=== PATIENT | male | born 2000 | race African-American/Black ===

== ENCOUNTER 2020-09-27 20:21 | Emergency (ER) | payer SELFPAY ==
[2020-09-27] MEDS ORDERED: IBUPROFEN 400 MG TAB ONE (21:11)
[2020-09-27] MEDS ORDERED: IBUPROFEN 200 MG TAB PO ONE (21:11)
--- NOTE | 2020-09-27 21:42 | EDPHYS ---
Physician Documentation [facility] Name: Phillip Cade Age: 20 yrs Sex: Male : 2000 Arrival Date: 09/27/2020 Time: 20:24 Bed 16 Private MD: ED Physician Gilmar Cage HPI: 09/27 21:37 This 20 yrs old Black Male presents to ER via Ambulatory with complaints of Weakness, kb Headache, Doesn't Feel Right. 21:37 The patient has not experienced similar symptoms in the past. The patient has not kb recently seen a physician. 21:37 The patient or guardian reports cough, that is intermittent, described as mild, with no kb sputum, flu symptoms, low-grade fever, myalgias. Onset: The symptoms/episode began/occurred yesterday. Severity of symptoms: At their worst the symptoms were moderate, in the emergency department the symptoms are unchanged. Modifying factors: The symptoms are alleviated by nothing, the symptoms are aggravated by nothing. Associated signs and symptoms: Pertinent positives: fever, Pertinent negatives: chest pain, diarrhea, ear ache, nausea, rhinorrhea, sore throat, vomiting. Historical: - Allergies: 20:54 Onion; em - PMHx: 20:54 Asthma; em - PSHx: 20:54 None; em - Immunization history:: Flu vaccine is not up to date. - Social history:: Smoking status: Reported history of juuling and/or vaping. ROS: 21:36 Cardiovascular: Negative for chest pain, palpitations, and edema, Abdomen/GI: Negative kb for abdominal pain, nausea, vomiting, diarrhea, and constipation, MS/Extremity: Negative for injury and deformity, Skin: Negative for injury, rash, and discoloration, Neuro: Negative for headache, weakness, numbness, tingling, and seizure. 21:36 Constitutional: Positive for body aches, chills, fatigue, fever, malaise. 21:36 Respiratory: Positive for cough, Negative for dyspnea on exertion, hemoptysis, orthopnea, pleurisy, shortness of breath, sputum production, wheezing. Exam: 21:36 Constitutional: This is a well developed, well nourished patient who is awake, alert, kb and in no acute distress. Head/Face: Normocephalic, atraumatic. Chest/axilla: Normal chest wall appearance and motion. Nontender with no deformity. No lesions are appreciated. Cardiovascular: Regular rate and rhythm with a normal S1 and S2. No gallops, murmurs, or rubs. Normal PMI, no JVD. No pulse deficits. Respiratory: Lungs have equal breath sounds bilaterally, clear to auscultation and percussion. No rales, rhonchi or wheezes noted. No increased work of breathing, no retractions or nasal flaring. Abdomen/GI: Soft, non-tender, with normal bowel sounds. No distension or tympany. No guarding or rebound. No evidence of tenderness throughout. Skin: Warm, dry with normal turgor. Normal color with no rashes, no lesions, and no evidence of cellulitis. MS/ Extremity: Pulses equal, no cyanosis. Neurovascular intact. Full, normal range of motion. Neuro: Awake and alert, GCS 15, oriented to person, place, time, and situation. Cranial nerves II-XII grossly intact. Motor strength 5/5 in all extremities. Sensory grossly intact. Cerebellar exam normal. Normal gait. 21:36 ENT: Posterior pharynx: Airway: normal, no evidence of obstruction, Tonsils: bilaterally enlarged, with erythema, Uvula: normal, midline, swelling, that is mild, erythema, that is moderate. Vital Signs: 20:50 BP 135 / 71; Pulse 109; Resp 20; Temp 101.5; Pulse Ox 99% on R/A; Weight 81.65 kg; em Height 6 ft. 0 in. (182.88 cm); Pain 8/10; 21:49 BP 120 / 79; Pulse 99; Resp 18; Temp 99.8; Pulse Ox 100% ; rr5 20:50 Body Mass Index 24.41 (81.65 kg, 182.88 cm) em MDM: 20:42 Patient medically screened. kb 21:36 Data reviewed: vital signs, nurses notes. Data interpreted: Pulse oximetry: on room air kb is 99 %. Interpretation: normal. 21:38 Counseling: I had a detailed discussion with the patient and/or guardian regarding: the kb historical points, exam findings, and any diagnostic results supporting the discharge/admit diagnosis, lab results, the need for outpatient follow up, a family practitioner, to return to the emergency department if symptoms worsen or persist or if there are any questions or concerns that arise at home. 09/27 20:49 Order name: Flu 09/27 20:49 Order name: Strep 09/27 20:49 Order name: [place] Screen Profile 09/27 20:50 Order name: Influenza Screen (A ; Complete Time: 21:38 [facility] 09/27 20:50 Order name: Group A Streptococcus Rapid Sc; Complete Time: 21:35 [facility] 09/27 20:50 Order name: [place] Screen; Complete Time: 21:35 [facility] 09/27 21:34 Order name: Throat Culture EDDC Administered Medications: 21:00 Drug: Ibuprofen 600 mg Route: PO; em 21:51 Follow up: Response: No adverse reaction; Temperature is decreased rr5 Disposition: 09/28 04:00 Co-signature as Attending Physician, Gilmar Cage MD. 7 Disposition: 09/27/20 21:42 Discharged to Home. Impression: Acute upper respiratory infection, unspecified. - Condition is Stable. - Discharge Instructions: Viral Respiratory Infection, Flvl-Dn-Yaur, COVID-19. - Medication Reconciliation Form, Thank You Letter, Antibiotic Education, Prescription Opioid Use form. - Follow up: Emergency Department; When: As needed; Reason: Worsening of condition. Follow up: Private Physician; When: 2 - 3 days; Reason: Recheck today's complaints, Continuance of care, Re-evaluation by your physician. Signatures: Dispatcher [employer] [facility] Josey Barone, EDITING CLERK-C EDITING CLERK-Jeb Ricci RN RN Triston Alberto RN RN rr5 Gilmar Cage MD MD 7 Corrections: (The following items were deleted from the chart) 09/27 21:48 21:39 CORONAVIRUS+MR.LAB.BRZ ordered. [facility] 21:51 21:42 09/27/2020 21:42 Discharged to Home. Impression: Acute upper respiratory rr5 infection, unspecified. Condition is Stable. Discharge Instructions: Viral Respiratory Infection, [id number], COVID-19. Forms are Medication Reconciliation Form, Thank You Letter, Antibiotic Education, Prescription Opioid Use. Follow up: Emergency Department; When: As needed; Reason: Worsening of condition. Follow up: Private Physician; When: 2 - 3 days; Reason: Recheck today's complaints, Continuance of care, Re-evaluation by your physician. kb
--- NOTE | 2020-09-27 21:42 | ER ---
Nurse's Notes [facility] Name: Phillip Cade Age: 20 yrs Sex: Male : 2000 Arrival Date: 09/27/2020 Time: 20:24 Bed 16 Private MD: Diagnosis: Acute upper respiratory infection, unspecified Presentation: 09/27 20:50 Chief complaint: Patient states: chills, body aches, mild cough, and feeling weak since em yesterday, denies N/V or fever, pt reports getting the 2 series covid vaccine about 2-3 months ago because he is in the and was one of the first to get it. Coronavirus screen: chills, cough unrelated to allergies, muscle pain, Client presents with at least one sign or symptom that may indicate coronavirus-19. Standard/surgical mask placed on the client. Provider contacted for isolation considerations. Ebola Screen: Patient negative for fever greater than or equal to 101.5 degrees Fahrenheit, and additional compatible Ebola Virus Disease symptoms Patient denies exposure to infectious person. Patient denies travel to an Ebola-affected area in the 21 days before illness onset. No symptoms or risks identified at this time. Initial Sepsis Screen: Does the patient meet any 2 criteria? Temp <36.0*C (96.8*F)) or > 38.3*C (100.9*F). HR > 90 bpm. No. Patient's initial sepsis screen is negative. Does the patient have a suspected source of infection? Yes: Productive cough/pneumonia. Risk Assessment: Do you want to hurt yourself or someone else? Patient reports no desire to harm self or others. Onset of symptoms was September 26, 2020. 20:50 Method Of Arrival: Ambulatory em 20:50 Acuity: KEIRY 3 em Historical: - Allergies: 20:54 Onion; em - PMHx: 20:54 Asthma; em - PSHx: 20:54 None; em - Immunization history:: Flu vaccine is not up to date. - Social history:: Smoking status: Reported history of juuling and/or vaping. Screenin:11 Abuse screen: Denies threats or abuse. Denies injuries from another. Nutritional rr5 screening: No deficits noted. Tuberculosis screening: No symptoms or risk factors identified. Fall Risk None identified. Total Rea Fall Scale indicates No Risk (0-24 pts). Assessment: 21:10 General: Appears in no apparent distress. comfortable, Behavior is calm, cooperative, rr5 appropriate for age, Reports chills for feeling ill for. Pain: Complains of pain in body Pain currently is 8 out of 10 on a pain scale. Quality of pain is described as aching, Pain began gradually, Is intermittent. Neuro: Level of Consciousness is awake, alert, obeys commands, Oriented to person, place, time, situation. Cardiovascular: Capillary refill < 3 seconds Patient's skin is warm and dry. Respiratory: Reports cough that is Airway is patent Respiratory effort is even, unlabored, Respiratory pattern is. GI: No signs and/or symptoms were reported involving the gastrointestinal system. : No signs and/or symptoms were reported regarding the genitourinary system. EENT: No signs and/or symptoms were reported regarding the EENT system. Derm: Skin is intact, is healthy with good turgor, Skin temperature is warm. Musculoskeletal: Capillary refill < 3 seconds, Reports pain in body. 21:49 Reassessment: Patient appears in no apparent distress at this time. Patient is alert, rr5 oriented x 3, equal unlabored respirations, skin warm/dry/pink. patient refused to be tested for covid, Laboratory informed to cancel the order and instructed the patient to follow up his result. he has been swab couple of days ago. discharge instruction given and explained without complaints made. Vital Signs: 20:50 BP 135 / 71; Pulse 109; Resp 20; Temp 101.5; Pulse Ox 99% on R/A; Weight 81.65 kg; em Height 6 ft. 0 in. (182.88 cm); Pain 8/10; 21:49 BP 120 / 79; Pulse 99; Resp 18; Temp 99.8; Pulse Ox 100% ; rr5 20:50 Body Mass Index 24.41 (81.65 kg, 182.88 cm) em ED Course: 20:24 Patient arrived in ED. bp1 20:25 Josey Barone FNP-C is PHCP. kb 20:25 Gilmar Cage MD is Attending Physician. kb 20:53 Triage completed. em 20:54 Arm band placed on. em 20:55 Triston Alberto RN is Primary Nurse. rr5 21:11 Patient has correct armband on for positive identification. Bed in low position. Call rr5 light in reach. 21:12 Flu Sent. em 21:12 Strep Sent. em 21:12 [place] Screen Profile Sent. em 21:51 No provider procedures requiring assistance completed. Patient did not have IV access rr5 during this emergency room visit. Administered Medications: 21:00 Drug: Ibuprofen 600 mg Route: PO; em 21:51 Follow up: Response: No adverse reaction; Temperature is decreased rr5 Outcome: 21:42 Discharge ordered by . iglesia 21:51 Discharged to home ambulatory. rr5 21:51 Condition: stable 21:51 Discharge instructions given to patient, Instructed on discharge instructions, follow up and referral plans. Demonstrated understanding of instructions, follow-up care. 21:51 Patient left the ED. rr5 Signatures: Josey Barone, FLEXIBLE MACHINING SYSTEM MACHINIST-C FLEXIBLE MACHINING SYSTEM MACHINIST-Jeb Ricci RN RN em Triston Alberto RN RN rr5 Mary Beth Bautista
[2020-09-29 07:53] VITALS: BP 120/79; TEMP 99.8; O2SAT 100
== END 2020-09-27 21:51 | disposition home or self-care (01) ==
LOC: ER 20:21
DX: J06.9 Acute upper respiratory infection, unspecified (principal); Z91.018 Allergy to other foods
CPT/HCPCS: 36415; 86308; 87070; 87081; 87804; 99283

== ENCOUNTER 2021-03-25 03:15 | Emergency (ER) | payer SELFPAY ==
[2021-03-25 03:40] LABS: Absolute Lymphocytes (CBC) 1.8 K/uL (0.7-4.9); Basophils % 0.7 % (0-1.3); Hematocrit 40.8 % (39.6-49.0); Lymphocytes % 21.6 % (15.3-44.8); MPV 8.9 fL (7.6-11.3); RBC Red Blood Cell Count 4.71 M/uL (4.33-5.43)
[2021-03-25 03:45] LABS: Protime INR 1.26
[2021-03-25 03:54] LABS: ALT/SGPT 21 U/L (12-78); AST/SGOT 27 U/L (15-37); Albumin 3.9 g/dL (3.4-5.0); Alkaline Phosphatase 85 U/L (45-117); BUN Blood Urea Nitrogen 11 mg/dL (7-18); Bicarbonate 29 mmol/L (21-32); Bilirubin Direct 0.2 mg/dL (0-0.2); Bilirubin Total 0.8 mg/dL (0.2-1.0); CKMB Creatine Kinase MB 1.6 ng/mL (1.0-3.6); Creatine Phosphokinase 597 U/L (39-308); Glucose Level 87 mg/dL (74-106); Lipase 25 U/L (73-393); Magnesium 1.9 mg/dL (1.8-2.4); Potassium 3.4 mmol/L (3.5-5.1); Protein, Total 7.8 g/dL (6.4-8.2); Sodium Level 140 mmol/L (136-145); Troponin (Emerg Dept Use Only) < 0.02 ng/mL (0.0-0.045)
[2021-03-25] MEDS ORDERED: NA CHLORIDE 0.9% 1,000 ML ONE (04:21)
--- NOTE | 2021-03-25 05:28 | ER ---
Nurse's Notes [facility] Name: Phillip Cade Age: 20 yrs Sex: Male : 2000 Arrival Date: 03/25/2021 Time: 03:18 Bed 15 Private MD: Diagnosis: Syncope;Strep Pharyngitis Presentation: 03/25 03:18 Chief complaint: EMS states: Toned out pt reported having syncopal episode and an ea episode of dizziness and vomiting prior to arrival. Pt reports it happened approximately 0240. Coronavirus screen: At this time, the client does not indicate any symptoms associated with coronavirus-19. Ebola Screen: No symptoms or risks identified at this time. Initial Sepsis Screen: Does the patient meet any 2 criteria? No. Patient's initial sepsis screen is negative. Does the patient have a suspected source of infection? No. Patient's initial sepsis screen is negative. Risk Assessment: Do you want to hurt yourself or someone else? Patient reports no desire to harm self or others. Onset of symptoms was March 25, 2021. 03:18 Method Of Arrival: EMS: [facility] ea 03:18 Acuity: KEIRY 3 ea Triage Assessment: 03:36 General: Appears in no apparent distress. Behavior is appropriate for age. Pain: Denies ea pain. Neuro: Level of Consciousness is awake, alert, obeys commands, Oriented to person, place, time, Reports dizziness. Historical: - Allergies: 03:36 Onion; ea - PMHx: 03:36 Asthma; ea - PSHx: 03:36 None; ea - Immunization history:: Adult Immunizations up to date. - Social history:: Smoking status: unknown. Screenin:35 Abuse screen: Denies threats or abuse. Nutritional screening: No deficits noted. ea Tuberculosis screening: No symptoms or risk factors identified. Fall Risk None identified. Assessment: 03:37 General: Appears in no apparent distress. Behavior is appropriate for age. Pain: Denies ea pain. Neuro: Level of Consciousness is awake, alert, obeys commands, Oriented to person, place, time. Cardiovascular: Patient's skin is warm and dry. Respiratory: Airway is patent Respiratory effort is even, unlabored, Respiratory pattern is regular, symmetrical. Derm: Skin is pink, warm \T\ dry. 04:50 Reassessment: Patient and/or family updated on plan of care and expected duration. Pain ea level reassessed. Patient is alert, oriented x 3, equal unlabored respirations, skin warm/dry/pink. 05:30 Reassessment: Patient and/or family updated on plan of care and expected duration. Pain ea level reassessed. Pt resting with eyes closed, respirations even and unlabored. Chest expansions even and symmetrical. No s/s of pain or discomfort noted at this time. Vital Signs: 03:18 BP 135 / 87; Pulse 94; Resp 18; Temp 98.5; Pulse Ox 98% ; Weight 74.84 kg; Height 6 ft. ea 2 in. (187.96 cm); 04:00 BP 96 / 77; Pulse 70; Resp 18; Temp 98.2; Pulse Ox 95% ; Pain 0/10; fu 05:30 BP 110 / 74; Pulse 68; Resp 18; Pulse Ox 98% ; ea 03:18 Body Mass Index 21.18 (74.84 kg, 187.96 cm) ea ED Course: 03:18 Patient arrived in ED. ea 03:20 Gilmar Cage MD is Attending Physician. [facility] 03:20 Inserted saline lock: 20 gauge in right forearm, using aseptic technique. Blood fu collected. 03:27 Basic Metabolic Panel Sent. fu 03:27 CBC with Diff Sent. fu 03:35 Triage completed. ea 03:36 Patient has correct armband on for positive identification. Call light in reach. Side ea rails up X 1. vehicle monitor technician on. Pulse ox on. NIBP on. 03:36 Arm band placed on right wrist. Patient placed in an exam room, on a stretcher, on ea pulse oximetry. 03:42 Cassandra Flood, HAMZAH is Primary Nurse. ea 03:59 Rapid Strep Sent. fu 04:14 CT Head Brain wo Cont In Process Unspecified. EDMS 04:17 Chest Single View XRAY In Process Unspecified. EDMS 06:11 No provider procedures requiring assistance completed. IV discontinued, bleeding fu controlled, Pressure dressing applied. Administered Medications: 04:20 Drug: NS 0.9% 1000 ml Route: IV; Rate: 1000 ml; Site: right antecubital; ea 06:11 Follow up: Response: No adverse reaction; IV Intake: 1000ml fu 06:14 Follow up: Response: No adverse reaction; IV Status: Completed infusion; IV Intake: ea 1000ml Intake: 06:11 IV: 1000ml; Total: 1000ml. fu 06:14 IV: 1000ml; Total: 2000ml. brenton Outcome: 05:27 Discharge ordered by . [email or web address] 06:13 Discharged to home ambulatory. fu 06:13 Condition: good 06:13 Discharge instructions given to patient, Instructed on discharge instructions, follow up and referral plans. Demonstrated understanding of instructions, follow-up care, Prescriptions given X 1. 06:14 Patient left the ED. ea Signatures: Dispatcher [employer] Cassandra Argueta RN RN ea Umadhay, Felix RN Gilmar Gunter MD MD [email or web address]
--- NOTE | 2021-03-25 05:28 | EDPHYS ---
Physician Documentation [facility] Name: Phillip Cade Age: 20 yrs Sex: Male : 2000 Arrival Date: 03/25/2021 Time: 03:18 Bed 15 Private MD: ED Physician Gilmar Cage HPI: 03/25 03:49 This 20 yrs old Black Male presents to ER via EMS with complaints of Syncope. mh7 03:49 The patient has experienced near-syncope, almost passed out, felt dizzy. Onset: The mh7 symptoms/episode began/occurred today. Duration: This was a single episode, that lasted an unknown period of time. Context: the episode(s) was witnessed, by no one, occurred on a street or driveway, occurred while the patient was walking, Just prior to the episode the patient experienced dizziness, vomiting. Associated injury: The patient did not suffer any apparent associated injury. Associated signs and symptoms: Pertinent positives: dizziness, lightheadedness, nausea, vomiting, Sore throat for 4 days, Pertinent negatives: abdominal pain, agitation, ataxia, blurred vision, chest pain, combativeness, confusion, diaphoresis, diarrhea, headache, numbness, palpitations, seizure, shortness of breath, tingling, vertigo, weakness. Current symptoms: Currently, the patient is not experiencing any symptoms, the patient feels back to baseline. Historical: - Allergies: 03:36 Onion; ea - PMHx: 03:36 Asthma; ea - PSHx: 03:36 None; ea - Immunization history:: Adult Immunizations up to date. - Social history:: Smoking status: unknown. ROS: 03:49 Constitutional: Negative for fever, chills, and weight loss, Eyes: Negative for injury, mh7 pain, redness, and discharge, Neck: Negative for injury, pain, and swelling, Cardiovascular: Negative for chest pain, palpitations, and edema, Respiratory: Negative for shortness of breath, cough, wheezing, and pleuritic chest pain, Back: Negative for injury and pain, : Negative for injury, bleeding, discharge, and swelling, MS/Extremity: Negative for injury and deformity, Skin: Negative for injury, rash, and discoloration, Neuro: Negative for headache, weakness, numbness, tingling, and seizure, Psych: Negative for depression, anxiety, suicide ideation, homicidal ideation, and hallucinations, Allergy/Immunology: Negative for hives, rash, and allergies, Endocrine: Negative for neck swelling, polydipsia, polyuria, polyphagia, and marked weight changes, Hematologic/Lymphatic: Negative for swollen nodes, abnormal bleeding, and unusual bruising. Exam: 03:49 Constitutional: This is a well developed, well nourished patient who is awake, alert, mh7 and in no acute distress. Head/Face: Normocephalic, atraumatic. Eyes: Pupils equal round and reactive to light, extra-ocular motions intact. Lids and lashes normal. Conjunctiva and sclera are non-icteric and not injected. Cornea within normal limits. Periorbital areas with no swelling, redness, or edema. 03:49 Chest/axilla: Normal chest wall appearance and motion. Nontender with no deformity. No lesions are appreciated. Cardiovascular: Regular rate and rhythm with a normal S1 and S2. No gallops, murmurs, or rubs. Normal PMI, no JVD. No pulse deficits. Respiratory: Lungs have equal breath sounds bilaterally, clear to auscultation and percussion. No rales, rhonchi or wheezes noted. No increased work of breathing, no retractions or nasal flaring. Abdomen/GI: Soft, non-tender, with normal bowel sounds. No distension or tympany. No guarding or rebound. No evidence of tenderness throughout. Back: No spinal tenderness. No costovertebral tenderness. Full range of motion. Skin: Warm, dry with normal turgor. Normal color with no rashes, no lesions, and no evidence of cellulitis. MS/ Extremity: Pulses equal, no cyanosis. Neurovascular intact. Full, normal range of motion. Neuro: Awake and alert, GCS 15, oriented to person, place, time, and situation. Cranial nerves II-XII grossly intact. Motor strength 5/5 in all extremities. Sensory grossly intact. Cerebellar exam normal. Normal gait. Psych: Awake, alert, with orientation to person, place and time. Behavior, mood, and affect are within normal limits. 03:49 ENT: Mouth: is normal, Posterior pharynx: Airway: normal, Tonsils: bilaterally enlarged, with erythema, Uvula: normal, swelling, is not appreciated, erythema, that is moderate, exudate, that is mild, peritonsillar mass, is not appreciated, pooling of secretions, is not appreciated, Dental exam: normal, Voice: is normal. Vital Signs: 03:18 BP 135 / 87; Pulse 94; Resp 18; Temp 98.5; Pulse Ox 98% ; Weight 74.84 kg; Height 6 ft. ea 2 in. (187.96 cm); 04:00 BP 96 / 77; Pulse 70; Resp 18; Temp 98.2; Pulse Ox 95% ; Pain 0/10; fu 05:30 BP 110 / 74; Pulse 68; Resp 18; Pulse Ox 98% ; ea 03:18 Body Mass Index 21.18 (74.84 kg, 187.96 cm) ea MDM: 05:23 Differential Diagnosis: cardiac arrhythmia, drug effect, idiopathic syncope, pseudo mh7 seizure, seizure, vasovagal episode, Infection. Data reviewed: vital signs, nurses notes, EMS record, lab test result(s), cardiac enzymes, CBC, electrolytes, Flu: negative urinalysis, urine drug screen, strep positive, EKG, radiologic studies, CT scan, plain films. Data interpreted: Pulse oximetry: on room air is 98 %. Interpretation: normal. Counseling: I had a detailed discussion with the patient and/or guardian regarding: the historical points, exam findings, and any diagnostic results supporting the discharge/admit diagnosis, lab results, radiology results, the need for outpatient follow up, to return to the emergency department if symptoms worsen or persist or if there are any questions or concerns that arise at home. Response to treatment: the patient's symptoms have resolved after treatment, the patient's blood pressure is in an acceptable range, mental status has returned to baseline, the patient no longer shows bradycardia, the patient is not short of breath, the patient is not tachycardic, the patient's pain is gone, the patient's temperature has normalized, the patient is now symptom free. Refusal of service: The patient/guardian displays adequate decision making capability and despite a detailed discussion of alternatives, benefits, risks, and consequences refuses: Medications. 05:27 Patient medically screened. [facility] 03/25 03:20 Order name: Basic Metabolic Panel 03/25 03:20 Order name: CBC with Diff 03/25 03:20 Order name: Ckmb; Complete Time: 03:55 03/25 03:20 Order name: CPK; Complete Time: 03:55 03/25 03:20 Order name: Hepatic Function; Complete Time: 03:55 03/25 03:20 Order name: Lipase; Complete Time: 03:55 03/25 03:20 Order name: Magnesium; Complete Time: 03:55 03/25 03:20 Order name: Protime (+inr); Complete Time: 03:48 03/25 03:20 Order name: Ptt, Activated; Complete Time: 03:48 03/25 03:20 Order name: Troponin (emerg Dept Use Only); Complete Time: 03:55 03/25 03:21 Order name: Basic Metabolic Panel; Complete Time: 03:55 EDMS 03/25 03:21 Order name: CBC with Automated Diff; Complete Time: 03:48 EDMS 03/25 03:48 Order name: ETOH Level; Complete Time: 05:01 [facility] 03/25 03:20 Order name: EKG; Complete Time: 03:21 03/25 03:20 Order name: Cardiac monitoring; Complete Time: 03:33 03/25 03:20 Order name: EKG - Nurse/Tech; Complete Time: 03:33 03/25 03:20 Order name: IV Saline Lock; Complete Time: 03:27 03/25 03:20 Order name: Labs collected and sent; Complete Time: 03:27 03/25 03:20 Order name: NPO; Complete Time: 03:33 03/25 03:20 Order name: O2 Per Protocol; Complete Time: 03:27 03/25 03:20 Order name: O2 Sat Monitoring; Complete Time: 03:27 03/25 03:48 Order name: CT Head Brain wo Cont [facility] 03/25 03:48 Order name: Rapid Strep [facility] 03/25 03:55 Order name: Chest Single View XRAY [facility] Administered Medications: 04:20 Drug: NS 0.9% 1000 ml Route: IV; Rate: 1000 ml; Site: right antecubital; ea 06:11 Follow up: Response: No adverse reaction; IV Intake: 1000ml fu 06:14 Follow up: Response: No adverse reaction; IV Status: Completed infusion; IV Intake: ea 1000ml Disposition: 03/25/21 05:27 Discharged to Home. Impression: Syncope, Strep Pharyngitis. - Condition is Stable. - Discharge Instructions: Strep Throat, [id number], Syncope, [id number]. - Prescriptions for penicillin V potassium 500 mg Oral tablet - take 1 tablet by ORAL route every 12 hours for 10 days; 20 tablet. - Medication Reconciliation Form, Thank You Letter, Antibiotic Education, Prescription Opioid Use form. - Follow up: Private Physician; When: 1 - 2 days; Reason: Worsening of condition, Recheck today's complaints, Continuance of care, Re-evaluation by your physician. - Problem is new. - Symptoms have improved. Signatures: Dispatcher [employer] EDMS Leobardo Soni, HEAVY EQUIPMENT TECHNICIAN-C HEAVY EQUIPMENT TECHNICIAN-Cla1 Cassandra Flood RN RN ea Holmes, Maurice, MD MD [facility] Serge Jones RN Corrections: (The following items were deleted from the chart) 06:14 05:27 03/25/2021 05:27 Discharged to Home. Impression: Syncope; Strep Pharyngitis. ea Condition is Stable. Forms are Medication Reconciliation Form, Thank You Letter, Antibiotic Education, Prescription Opioid Use. Follow up: Private Physician; When: 1 - 2 days; Reason: Worsening of condition, Recheck today's complaints, Continuance of care, Re-evaluation by your physician. Problem is new. Symptoms have improved. mh7
[2021-03-25 06:24] VITALS: TEMP 98.2
[2021-03-25 06:26] VITALS: BP 110/74; O2SAT 98
--- NOTE | 2021-03-26 11:35 | RAD REPORT ---
EXAM DESCRIPTION: CT Head COMPARISON: CT head May 31, 2019 report only CLINICAL HISTORY: [facility] MAIN SYNCOPE TECHNIQUE: Axial images were obtained from skull base to vertex without intravenous contrast. Imag es viewed on bone and brain windows. Multiplanar reformats were performed. Automated exposure contr ol was utilized on this examination as a dose lowering technique. FINDINGS: Brain parenchyma, ventricles, dura, meninges, and extra-axial spaces: Ventricles and sulci are normal. No abnormal attenuation of brain parenchyma is present. No acute intracranial hemor rhage or abnormal extra-axial fluid collections are present. Vascular structures: No hyperdense arteries or veins. Calvarium, mastoid air cells, paranasal sinuses and orbits: The calvarium is normal. Two 4 mm metalli c foreign bodies are noted in the left frontal scalp. The mastoid air cells are clear. Visualized par anasal sinuses are unremarkable. Orbital structures are unremarkable. IMPRESSION: 1. No acute intracranial abnormality. 2. Two 4 mm metallic foreign bodies are noted in the left frontal scalp. Electronically signed by: Wally Hu MD 03/25/2021 4:32 AM CDT Due to temporary technical issues with the PACS/Fluency reporting system, reports are being signed by the in house radiologists without review as a courtesy to insure prompt reporting. The interpreting radiologist is fully responsible for the content of the report.
--- NOTE | 2021-03-26 15:10 | RAD REPORT ---
EXAM DESCRIPTION: Chest Radiography COMPARISON: None. CLINICAL HISTORY: [facility] MAIN syncope FINDINGS: A single AP view of the chest demonstrates a normal cardiomediastinal silhouette. No pneumothorax or pleural effusion. No consolidation or pulmonary edema. Osseous structures are intact. IMPRESSION: No acute chest process. Electronically signed by: Wally Hu MD 03/25/2021 4:59 AM CDT Due to temporary technical issues with the PACS/Fluency reporting system, reports are being signed by the in house radiologists without review as a courtesy to insure prompt reporting. The interpreting radiologist is fully responsible for the content of the report.
== END 2021-03-25 06:14 | disposition home or self-care (01) ==
LOC: ER 03:15
DX: J02.0 Streptococcal pharyngitis (principal); Z91.018 Allergy to other foods
CPT/HCPCS: 36415; 70450; 71045; 80048; 80076; 80320; 82550; 82553; 83690; 83735; 84484; 85025; 85610; 85730; 87081; 93005; 96360; 96361; 99284; J7030

== ENCOUNTER 2021-04-02 19:03 | Emergency (ER) | payer SELFPAY ==
[2021-04-02 19:31] LABS: Absolute Lymphocytes (CBC) 1.3 K/uL (0.7-4.9); Basophils % 0.8 % (0-1.3); Hematocrit 40.9 % (39.6-49.0); Lymphocytes % 31.2 % (15.3-44.8); MPV 8.9 fL (7.6-11.3); RBC Red Blood Cell Count 4.74 M/uL (4.33-5.43)
[2021-04-02 19:51] LABS: ALT/SGPT 22 U/L (12-78); AST/SGOT 30 U/L (15-37); Alkaline Phosphatase 84 U/L (45-117); BUN Blood Urea Nitrogen 7 mg/dL (7-18); Bicarbonate 27 mmol/L (21-32); Bilirubin Direct 0.2 mg/dL (0-0.2); Bilirubin Total 0.9 mg/dL (0.2-1.0); Glucose Level 83 mg/dL (74-106); Potassium 3.5 mmol/L (3.5-5.1); Protein, Total 7.9 g/dL (6.4-8.2); Sodium Level 141 mmol/L (136-145)
[2021-04-02 20:00] LABS: Protime INR 1.22
[2021-04-02 21:10] LABS: Urine Blood Negative (Negative); Urine Glucose Negative (Negative); Urine Protein 1+ (Negative); Urine Specific Gravity >=1.030 (1.005-1.030)
[2021-04-02 21:46] LABS: Barbiturates NEGATIVE (NEGATIVE); Benzodiazepines NEGATIVE (NEGATIVE); Cocaine NEGATIVE (NEGATIVE); METHAMPHETAM NEGATIVE (NEGATIVE); Methadone NEGATIVE (NEGATIVE); Opiates NEGATIVE (NEGATIVE); Phencyclidine NEGATIVE (NEGATIVE); THC Cannibis POSITIVE (NEGATIVE)
--- NOTE | 2021-04-02 23:37 | ER ---
Nurse's Notes [facility] Name: Phillip Cade Age: 20 yrs Sex: Male : 2000 Arrival Date: 04/02/2021 Time: 19:13 Bed 8 Private MD: Diagnosis: Acute stress reaction Presentation: 04/02 19:16 Chief complaint: EMS states: Reported suicidal ideations, with no attempt today, pt ea reported to EMS he has attempted in the past. Coronavirus screen: At this time, the client does not indicate any symptoms associated with coronavirus-19. Ebola Screen: No symptoms or risks identified at this time. Initial Sepsis Screen: Does the patient meet any 2 criteria? No. Patient's initial sepsis screen is negative. Does the patient have a suspected source of infection? No. Patient's initial sepsis screen is negative. Risk Assessment: Do you want to hurt yourself or someone else? Patient reports no desire to harm self or others. Onset of symptoms was April 02, 2021. 19:16 Acuity: KEIRY 2 ea 19:16 Method Of Arrival: EMS: [facility] ea Triage Assessment: 19:20 General: Appears in no apparent distress. Behavior is calm, cooperative, appropriate ea for age. Pain: Denies pain. Neuro: Level of Consciousness is awake, alert, obeys commands, Oriented to person, place, time. Cardiovascular: Patient's skin is warm and dry. Respiratory: Airway is patent Respiratory effort is even, unlabored, Respiratory pattern is regular, symmetrical. Derm: Skin is pink, warm \T\ dry. Historical: - Allergies: 19:19 Onion; ea - PMHx: 19:19 Asthma; PTSD; ea - PSHx: 19:19 None; ea - Immunization history:: Adult Immunizations up to date. - Social history:: Smoking status: Reported history of juuling and/or vaping. Screenin:15 Abuse screen: Denies threats or abuse. Nutritional screening: No deficits noted. ea Tuberculosis screening: No symptoms or risk factors identified. Fall Risk IV access (20 points). Assessment: 19:23 General: Appears in no apparent distress. Behavior is calm, cooperative, appropriate ea for age. Pain: Denies pain. Neuro: Level of Consciousness is awake, alert, obeys commands, Oriented to person, place, time. Cardiovascular: Patient's skin is warm and dry. Respiratory: Airway is patent Respiratory effort is even, unlabored, Respiratory pattern is regular, symmetrical. Derm: Skin is pink, warm \T\ dry. Musculoskeletal: Circulation, motion, and sensation intact. Injury Description: Laceration sustained to dorsal aspect of right forearm is superficial, was sustained less than 30 minutes ago. no active bleeding noted at this time. 20:25 Reassessment: Patient appears in no apparent distress at this time. Patient and/or ad5 family updated on plan of care and expected duration. Pain level reassessed. Pt given sandwich and po liquids. Denies other needs. IV removed per request, catheter intact, bandage applied, no active bleeding. Pt remains calm and cooperative. NAD noted, will continue to monitor. 20:59 Reassessment: Patient and/or family updated on plan of care and expected duration. Pain ea level reassessed. Patient is alert, oriented x 3, equal unlabored respirations, skin warm/dry/pink. 21:55 Reassessment: Patient appears in no apparent distress at this time. No changes from ea previously documented assessment. Patient and/or family updated on plan of care and expected duration. Pain level reassessed. Patient denies pain at this time. 22:56 Reassessment: Patient appears in no apparent distress at this time. No changes from ea previously documented assessment. Patient and/or family updated on plan of care and expected duration. Pain level reassessed. 23:42 Reassessment: knockdown worker at bedside speaking with pt at this time. NAD noted, will ea continue to monitor. 23:53 Reassessment: Patient appears in no apparent distress at this time. Patient and/or ea family updated on plan of care and expected duration. Pain level reassessed. Patient is alert, oriented x 3, equal unlabored respirations, skin warm/dry/pink. Patient denies pain at this time. Patient states symptoms have improved. Vital Signs: 19:16 BP 129 / 81; Pulse 71; Resp 16; Temp 98.3; Pulse Ox 98% ; Weight 79.38 kg; Height 6 ft. ea 1 in. (185.42 cm); 23:53 BP 123 / 75; Pulse 74; Resp 16 S; Pulse Ox 100% on R/A; ea 19:16 Body Mass Index 23.09 (79.38 kg, 185.42 cm) ea ED Course: 19:13 Patient arrived in ED. ea 19:15 Josey Barone FNP-C [facility]. kb 19:15 John Jeter MD is Attending Physician. kb 19:16 Inserted saline lock: 20 gauge in right antecubital area, using aseptic technique. ea Blood collected. 19:18 Triage completed. ea 19:18 Arm band placed on right wrist. Patient placed in an exam room, on a stretcher, on ea pulse oximetry. EKG completed in triage. Results shown to MD. 19:18 Patient has correct armband on for positive identification. Placed in gown. Bed in low ea position. 19:26 Cassandra Flood, HAMZAH is Primary Nurse. ea 20:29 IV discontinued, intact, bleeding controlled, No redness/swelling at site. Pressure ad5 dressing applied. 21:53 called [facility] Crisis Line [phone] spoke to Nancy to have a screener mw2 evaluate the patient. 22:52 The Screener from [facility] arrived. mw2 23:56 No provider procedures requiring assistance completed. ea Administered Medications: No medications were administered Outcome: 23:37 Discharge ordered by MD. kb 23:56 Discharged to home ambulatory. ea 23:56 Condition: stable 23:56 Discharge instructions given to patient, Instructed on discharge instructions, follow up and referral plans. Demonstrated understanding of instructions, follow-up care. 23:57 Patient left the ED. ea Signatures: Josey Barone FNP-C FNP-Cassandra Gutierrez RN RN ea Shagufta Workman mw2 Tyrone Roe ad5
--- NOTE | 2021-04-02 23:38 | EDPHYS ---
Physician Documentation [facility] Name: Phillip Cade Age: 20 yrs Sex: Male : 2000 Arrival Date: 04/02/2021 Time: 19:13 Bed 8 Private MD: ED Physician John Jeter HPI: 04/02 23:50 This 20 yrs old Black Male presents to ER via EMS with complaints of Suicidal Ideation. kb 23:50 The patient presents to the emergency department with depression, ptsd, stress. Onset: kb The symptoms/episode began/occurred long time, worse today. Past psychiatric history: Prior diagnosis: depression, ptsd. Associated signs and symptoms: Pertinent positives; depression, suicide ideation. Severity of symptoms: At their worst the symptoms were moderate in the emergency department the symptoms have improved. The patient has experienced similar episodes in the past, chronically. The patient has not recently seen a physician. Pt reports he had depression and ptsd. States he was under a lot of stress today and had a thought of harming himself. States he started talking to his friends and is feeling better. Denies suicidal ideations at this time. Historical: - Allergies: 19:19 Onion; ea - PMHx: 19:19 Asthma; PTSD; ea - PSHx: 19:19 None; ea - Immunization history:: Adult Immunizations up to date. - Social history:: Smoking status: Reported history of juuling and/or vaping. ROS: 23:49 Constitutional: Negative for fever, chills, and weight loss. kb 23:49 Psych: Positive for depression, suicidal ideation. 23:49 All other systems are negative. Exam: 23:49 Constitutional: This is a well developed, well nourished patient who is awake, alert, kb and in no acute distress. Head/Face: Normocephalic, atraumatic. ENT: Moist Mucous membranes Cardiovascular: Regular rate and rhythm with a normal S1 and S2. No gallops, murmurs, or rubs. No pulse deficits. Respiratory: Respirations even and unlabored. No increased work of breathing, no retractions or nasal flaring. Abdomen/GI: Soft, non-tender. No distention Skin: Warm, dry with normal turgor. Normal color. MS/ Extremity: Pulses equal, no cyanosis. Neurovascular intact. Full, normal range of motion. Neuro: Awake and alert, GCS 15, oriented to person, place, time, and situation. Moves all extremities. Normal gait. Psych: Awake, alert, with orientation to person, place and time. Behavior, mood, and affect are within normal limits. Vital Signs: 19:16 BP 129 / 81; Pulse 71; Resp 16; Temp 98.3; Pulse Ox 98% ; Weight 79.38 kg; Height 6 ft. ea 1 in. (185.42 cm); 23:53 BP 123 / 75; Pulse 74; Resp 16 S; Pulse Ox 100% on R/A; ea 19:16 Body Mass Index 23.09 (79.38 kg, 185.42 cm) ea MDM: 19:15 Patient medically screened. kb 23:36 Data reviewed: vital signs, nurses notes. Data interpreted: Pulse oximetry: on room air kb is 98 %. Interpretation: normal. Counseling: I had a detailed discussion with the patient and/or guardian regarding: the historical points, exam findings, and any diagnostic results supporting the discharge/admit diagnosis, lab results, the need for outpatient follow up, a psychiatrist, to return to the emergency department if symptoms worsen or persist or if there are any questions or concerns that arise at home. 23:38 ED course: Pt talking on phone and laughing through ER visit. States he is no longer kb suicidal. States he does not want to harm himself at this time, he just had a lot going on earlier. [facility] screener evaluated pt and recommends outpatient treatment. . 04/02 19:14 Order name: Acetaminophen; Complete Time: 19:53 04/02 19:14 Order name: Basic Metabolic Panel; Complete Time: 19:53 04/02 19:14 Order name: CBC with Diff; Complete Time: 20:01 04/02 19:14 Order name: ETOH Level; Complete Time: 20:09 04/02 19:14 Order name: Hepatic Function; Complete Time: 19:53 04/02 19:14 Order name: PT-INR; Complete Time: 20:01 04/02 19:14 Order name: Ptt, Activated; Complete Time: 20:01 04/02 19:14 Order name: Salicylate; Complete Time: 20:09 04/02 19:14 Order name: Urine Drug Screen; Complete Time: 21:55 04/02 19:14 Order name: EKG; Complete Time: 19:15 04/02 19:14 Order name: EKG - Nurse/Tech; Complete Time: 19:15 04/02 19:14 Order name: IV Saline Lock; Complete Time: 19:15 ea 04/02 19:14 Order name: Labs collected and sent; Complete Time: 19:34 04/02 21:11 Order name: Urine Dipstick-Ancillary; Complete Time: 21:18 [facility] 04/02 19:14 Order name: Suicide Screening ([place]); Complete Time: 19:34 04/02 19:14 Order name: Urine Dipstick-Ancillary (obtain specimen); Complete Time: 21:12 Administered Medications: No medications were administered Disposition: 04/03 02:04 Co-signature as Attending Physician, John Jeter MD. satya Disposition: 04/02/21 23:37 Discharged to Home. Impression: Acute stress reaction. - Condition is Stable. - Discharge Instructions: Posttraumatic Stress Disorder, Suicidal Feelings: How to Help Yourself, Stress and Stress Management. - Medication Reconciliation Form, Thank You Letter, Antibiotic Education, Prescription Opioid Use form. - Follow up: Emergency Department; When: As needed; Reason: Worsening of condition. Follow up: Private Physician; When: 2 - 3 days; Reason: Recheck today's complaints, Continuance of care, Re-evaluation by your physician. Signatures: Dispatcher [employer] EDJosey Sheppard, AIRCRAFT ELECTRICIAN-C DAISY-John Chase MD MD pkl Antunez, Elena RN RN brenton Corrections: (The following items were deleted from the chart) 04/02 23:57 23:37 04/02/2021 23:37 Discharged to Home. Impression: Acute stress reaction. Condition ea is Stable. Forms are Medication Reconciliation Form, Thank You Letter, Antibiotic Education, Prescription Opioid Use. Follow up: Emergency Department; When: As needed; Reason: Worsening of condition. Follow up: Private Physician; When: 2 - 3 days; Reason: Recheck today's complaints, Continuance of care, Re-evaluation by your physician. kb
[2021-04-03 01:16] VITALS: TEMP 98.3
[2021-04-03 01:18] VITALS: BP 123/75; O2SAT 100
--- NOTE | 2021-04-03 07:50 | EKG ---
Test Date: 2021-04-02 Test Time: 19:10:55 Switch House Operator: STEWART MEASUREMENT RESULTS: Intervals: Rate: 65 CT: 158 QRSD: 88 QT: 404 QTc: 420 Ridge: P: 87 CT: 158 QRS: 78 T: 49 INTERPRETIVE STATEMENTS: Normal sinus rhythm Moderate voltage criteria for LVH, may be normal variant Borderline ECG Compared to ECG 03/25/2021 03:24:09 Sinus arrhythmia no longer present Electronically Signed On 04-03-21 07:48:57 CDT by Rk Griffiths
== END 2021-04-02 23:57 | disposition home or self-care (01) ==
LOC: ER 19:03
DX: F43.0 Acute stress reaction (principal); R45.851 Suicidal ideations; F43.10 Post-traumatic stress disorder, unspecified; J45.909 Unspecified asthma, uncomplicated
CPT/HCPCS: 36415; 80048; 80076; 80307; 80320; 80329; 81003; 85025; 85610; 85730; 93005; 99284